=== PATIENT | male | born 1970 | race Asian ===

== ENCOUNTER 2019-02-11 10:56 | Day surgery (SDC) | payer BC ==
[2019-02-11] MEDS ORDERED: MIDAZOLAM 1 MG/ML 2 ML INJ ×2 (12:40→12:41)
[2019-02-11] MEDS ORDERED: FENTAnyl 50 MCG/ML VIAL (12:40)
== END 2019-02-11 14:42 | disposition home or self-care (01) ==
LOC: GIL 10:56
DX: Z12.11 Encounter for screening for malignant neoplasm of colon (principal); K64.8 Other hemorrhoids; D12.6 Benign neoplasm of colon, unspecified
CPT/HCPCS: 45380; 88305